=== PATIENT | male | born 1990 | race Caucasian/White ===

== ENCOUNTER 2016-06-28 18:56 | Emergency (ER) | payer OTHER ==
--- NOTE | ~2016-06-28 | ER ---
PATIENT'S NAME: [facility] AGE: 26 Y [address] ROOM: [place] [id number] LOCATION: [facility] ADMIT DATE: 06/28/2016 ER/Outpatient Report DISCHARGE DATE: 06/28/2016 FAMILY PHYSICIAN: Richard Garcia MD ATTENDING PHYSICIAN: Dyllan Chow A 26-year-old male. He was transferred from [place] after crush injury of his thumb. Dr. Delarosa, the orthopedist, was called on the patient's arrival. The patient was hemodynamically stable. Dr. Delarosa arrived promptly, evaluated the patient, and repaired the thumb. DYLLAN CHOW MD JDB/modl /[id number] d: 06/29/16 0547 t: 06/30/16 0601, OUTPATIENT REPORT
--- NOTE | ~2016-06-28 | OR ---
PATIENT'S NAME: [facility] AGE: 26 Y [address] ROOM: [place] [address] LOCATION: [facility] ADMIT DATE: 06/28/2016 OR/Procedure Report DISCHARGE DATE: 06/28/2016 FAMILY PHYSICIAN: Richard Garcia MD ATTENDING PHYSICIAN: Rubens Chow SURGEON: Almas Delarosa MD NURSE ASSISTANT: DATE OF PROCEDURE: 06/28/2016 PREOPERATIVE DIAGNOSIS: Crush injury, right thumb. POSTOPERATIVE DIAGNOSIS: Crush injury, right thumb. OPERATION: Debridement and irrigation, left thumb tip with repair of laceration and nail bed. ANESTHESIA: Digital block with 0.5% Marcaine. INDICATIONS: This is a 26-year-old male from near [place] who got his thumb crushed in a farm implement. He was seen in [place] and transferred to the [facility] for care of his thumb tip injury. DESCRIPTION OF PROCEDURE: The patient was taken to the procedure room in the emergency department. His thumb was anesthetized with a digital block. It was prepped and draped. A tourniquet made from the finger of a sterile glove was applied and the wound edges debrided sharply with knife and scissors. The fracture ends of the distal phalanx were scraped with a scalpel. The lacerations on both sides of the nail bed were closed with interrupted 4-0 nylon. The length of the laceration in total was about 3 cm. The nail bed laceration was closed with interrupted 5-0 chromic gut. The nail had been in the Betadine soaking and it was cleaned and sewn into the nail fold with interrupted 4-0 nylon. The tourniquet was removed and dressings applied, and the patient is sent home without antibiotic as he is allergic to Keflex and penicillin and azithromycin, so it was felt reasonable to take the risk of infection after the debridement and his several irrigations. He will call for any problems. He will get wound care in [place] and return only as needed. MD JEAN CLAUDE ELDRIDGE/therese PATIENT'S NAME: [facility] AGE: 26 Y [address] ROOM: [place] [address] LOCATION: [facility] ADMIT DATE: 06/28/2016 OR/Procedure Report DISCHARGE DATE: 06/28/2016 FAMILY PHYSICIAN: Richard Garcia MD ATTENDING PHYSICIAN: Rubens Chow /[id number] d: 06/29/16 0130 t: 07/10/16 1031, OPERATIVE SUMMARY
--- NOTE | ~2016-06-28 | ER ---
PATIENT'S NAME: [facility] AGE: 26 Y [address] ROOM: [place] [address] LOCATION: [facility] ADMIT DATE: 06/28/2016 ER/Outpatient Report DISCHARGE DATE: 06/28/2016 FAMILY PHYSICIAN: Richard Garcia MD ATTENDING PHYSICIAN: Rubens Chow SUBJECTIVE: I was called to the emergency department to see this 26-year-old right-handed male. He was working and got his right thumb crushed under a piece of equipment. He was evaluated in [place] and transferred to [facility]. He came by private auto. He denies any other problems or pains. ALLERGIES: HE IS ALLERGIC TO KEFLEX, AZITHROMYCIN, AND PENICILLIN. MEDICATIONS: None. OPERATIONS: None. ILLNESSES: None. HABITS: The patient admits to smoking 5 cigarettes a day. FAMILY HISTORY: Noncontributory. REVIEW OF SYSTEMS: He denies problems with heart, lungs, or bowels. He denies arthritis and skin problems other than previous lacerations in the past that he has had sewn up. PHYSICAL EXAMINATION: GENERAL: This is a well-developed, well-nourished, overweight male who is alert and cooperative. VITAL SIGNS: His pulse is 99, respirations 16, temperature 99 degrees, SpO2 of 97% on room air. HEENT: Head normocephalic and atraumatic. LUNGS: Clear. ABDOMEN: Soft. HEART: Regular. EXTREMITIES: Both lower extremities have full range of motion. They are painless and without deformity. His left upper extremity has full range of PATIENT'S NAME: [facility] AGE: 26 Y [address] ROOM: [place], [place] [address] LOCATION: [facility] ADMIT DATE: 06/28/2016 ER/Outpatient Report DISCHARGE DATE: 06/28/2016 FAMILY PHYSICIAN: Richard Garcia MD ATTENDING PHYSICIAN: Rubens Chow motion and without deformity. On examination of his right hand, he has a crush injury to his right thumb distal phalanx with a partially avulsed fingernail and a laceration through the nail bed. IMPRESSION: Crush injury, right thumb. PLAN: Thumb will be repaired. The procedure, its risks, benefits, and alternatives were discussed with the patient, who appears to understand and requests to proceed. MD JEAN CLAUDE ELDRIDGE/therese /[id number] d: 06/29/16 1717 t: 06/30/16 1129, OUTPATIENT REPORT
== END 2016-06-28 22:26 | disposition disaster alternative care site (69) ==
LOC: GACC 18:56
DX: S67.01XA Crushing injury of right thumb, initial encounter (principal); F17.210 Nicotine dependence, cigarettes, uncomplicated; Z88.1 Allergy status to other antibiotic agents; Z88.0 Allergy status to penicillin; W23.0XXA Caught, crushed, jammed, or pinched between moving objects, initial encounter